=== PATIENT | female | born 1950 | race Two or more races ===

== ENCOUNTER 2025-05-24 23:46 | Emergency (ER) | payer OTHER ==
[~2025-05-24] VITALS: Ht 152.4 cm; Wt 56.7 kg
[~2025-05-24 23:46] MED LIST changes: -CEFAZOLIN SODIUM 1,000 MG VIAL ONE; -CHLORHEXIDINE GLUCONATE 120 ML BOTTLE TOP ONE; -ONDANSETRON HCL4 MG PO; -PEPCID AC20 MG PO
[2025-05-25] MEDS ORDERED: 0.9 % SODIUM CHLORIDE 1,000 ML IV STA (01:02)
[2025-05-25] MEDS ORDERED: FAMOTIDINE/PF 20 MG/2 ML VIAL IV STA (01:02)
[2025-05-25] MEDS ORDERED: ONDANSETRON HCL 2 MG/ML VIAL IV STA (01:02)
[2025-05-25] MEDS ORDERED: ONDANSETRON HCL 2 MG/ML VIAL ONE (01:56)
[2025-05-25] MEDS ORDERED: FAMOTIDINE/PF 20 MG/2 ML VIAL ONE (01:57)
[2025-05-25 02:53] LABS: BASO % 0.2 % (0.1-1.2); EOS # 0.00 (0.04-0.54); EOS % 0.0 % (0.7-7.0); LYMPH # 0.50 (1.18-3.74); LYMPH % 9.7 % (19.3-53.1); MEAN PLATELET VOLUME 9.80 fl (9.4-12.4); MONO # 0.33 (0.24-0.82); MONO % 6.4 % (4.7-12.5); NEUT # 4.28 (1.56-6.13); NEUT % 83.5 % (34.0-71.1); RED CELL DISTRIBUTION WIDTH 13.6 % (11.6-14.4)
[2025-05-25 03:13] LABS: BUN CREA RATIO 16.0 (7.0-25.0); CREATININE SERUM 0.83 mg/dL (0.55-1.02); GFR 67.2; GLUCOSE FASTING 140.0 mg/dL (65-100); OSMOLALITY SERUM 282.0 MOSM/KG (275-295); PHOSPHOKINASE CREATININE 162.0 U/L (26-192); TSH 1.17 uIU/mL (0.358-3.74)
[2025-05-25 03:21] LABS: URINE APPEARANCE Clear; URINE BILIRRUBIN Negative (NEGATIVE); URINE BLOOD Negative; URINE COLOR Yellow; URINE GLUCOSE Negative (NEGATIVE); URINE KETONE Negative (NEGATIVE); URINE LEUKOCYTE Small; URINE NITRATE Negative; URINE PROTEIN Negative (NEGATIVE); URINE UROBILINOGEN 0.2 E.U./dl
[2025-05-25 03:24] LABS: URINE BACTERIA 60.5 uL (0.0-1933); URINE EPITHELIAL CELLS 8.1 uL (0.0-38.8); URINE RBC 2.5 uL (0.0-20.8); URINE WBC 61.2 uL (0.0-23.2)
[2025-05-25 03:35] LABS: URINE CAST 0.42 uL (0.0-1.40)
[2025-05-25] MEDS ORDERED: ONDANSETRON HCL4 MG PO (04:58)
[2025-05-25] MEDS ORDERED: PEPCID AC20 MG PO (04:58)
== END 2025-05-25 05:48 | disposition home or self-care (01) ==
LOC: ER 23:47
PROVIDERS: General Practice
DX: R56.9 Unspecified convulsions (principal); Z88.1 Allergy status to other antibiotic agents; I10 Essential (primary) hypertension; R55 Syncope and collapse
CPT/HCPCS: 36415; 70450; 71045; 93005; 96365; 96366; 99284; J2405; J3490; J7030

== ENCOUNTER → 2025-05-24 | Day surgery (SDC) | payer OTHER ==
[2025-05-23 12:41] VITALS: BP 145/84
[~2025-05-24] VITALS: Ht 152.4 cm; Wt 56.7 kg
[~2025-05-24] MED LIST: CEFAZOLIN SODIUM 1,000 MG VIAL ONE; CHLORHEXIDINE GLUCONATE 120 ML BOTTLE TOP ONE; ONDANSETRON HCL4 MG PO; PEPCID AC20 MG PO; ROSUVASTATIN CA40 MG PO; TENORMIN25 MG PO
== END | disposition home or self-care (01) ==
LOC: ADM 05-23 15:00 → CIR.AMB 06:00
PROVIDERS: ATTEND Surgery
DX: C50.412 Malignant neoplasm of upper-outer quadrant of left female breast (principal); D48.7 Neoplasm of uncertain behavior of other specified sites; N60.82 Other benign mammary dysplasias of left breast; R59.0 Localized enlarged lymph nodes